=== PATIENT | male | born 1990 | race Caucasian/White ===

== ENCOUNTER 2024-11-05 05:03 | Emergency (ER) | payer SELFPAY ==
[2024-11-05 05:21] VITALS: BP 153/103
[2024-11-05 05:45] VITALS: BP 135/103
[2024-11-05 06:00] VITALS: BP 150/110
[2024-11-05 06:01] VITALS: BMI 24.2
[2024-11-05 06:17] LABS: Hematocrit 45.8 % (39.0-52.0); Hemoglobin 16.1 g/dL (13.0-18.0); Mean Corp Hgb Conc. 35.2 g/dL (33.0-37.0); Mean Corpuscular Volume 94.6 fL (80.0-94.0); Nucleated Red Blood Cells % 0 % (-); Platelet Count 220 10^3/uL (130-400); Red Cell Dist. Width 13.8 % (11.5-14.5)
[2024-11-05] MEDS: ZOFRAN 4 MG IV (06:20)
[2024-11-05] MEDS: NSS 1000 IV (06:30)
[2024-11-05 06:45] LABS: ALT (SGPT) 89 U/L (0-50); AST (SGOT) 83 U/L (17-59); Albumin 5.3 g/dl (3.5-5.0); Alkaline Phosphatase 74 U/L (38-126); Blood Urea Nitrogen 9 mg/dl (9-20); Calcium 9.1 mg/dl (8.4-10.2); Carbon Dioxide 24 mmol/L (22-30); Chloride 96 mmol/L (98-107); Estimated Creatinine Clearance > 125 ml/min; Glucose 125 mg/dl (70-99); Potassium 4.4 mmol/L (3.5-5.1); Sodium 136 mmol/L (135-145); Total Protein 9.2 g/dl (6.3-8.2); eGFR > 60.00
[2024-11-05 07:00] VITALS: BP 154/106
[2024-11-05] MEDS: ATIVAN 2 MG PO (07:33)
[2024-11-05 07:35] LABS: Magnesium 1.9 mg/dl (1.6-2.3)
[2024-11-05 08:00] VITALS: BP 123/93
--- NOTE | 2024-11-05 08:20 | ED.GENMED ---
History of Present Illness
General
Chief Complaint: Withdrawal Symptoms
Source: patient
Exam Limitations: none
Time Seen by Provider: 11/05/24 06:53
Nursing documentation reviewed up to this point in time: agreed with
History of Present Illness
History of Present Illness:
Patient presents to ED requesting alcohol detox, secondary to increased alcohol consumption recently, including approxi-2 hours prior to arrival. Denies suicidal or homicidal ideation. Denies abdominal pain. Patient does report nausea sensation.
Denies fever or chills. Denies use of any other illicit medications. Denies dizziness or weakness. Denies trauma. Denies recent illness.
Review of Systems
Review of Systems
Allergies reviewed?: Yes
All Other Systems: ROS reviewed and negative except as documented in HPI and ROS
Constitutional: Reports no symptoms; Denies fever
ABD/GI: Reports nausea; Denies abdominal pain or vomiting
: Reports no symptoms
Musculoskeletal: Reports no symptoms
Skin: Reports no symptoms
Neurological: Reports no symptoms
Phy Exam
Physical Exam
Physical Exam:
Physical Exam
General: no apparent distress, not acutely ill. afebrile. tachycardic.
Head: nc/at. eomi
Neck: supple. no meningeal signs.
Heart: tachycardic. no murmur
Lungs: no acute respiratory distress. clear bilaterally
Abdomen: normal bowel sounds. not tender. no distention
Neuro: alert and oriented x 3. no focal neurological deficits
Skin: no rash
Psychiatric: well kept. interactive and cooperative
Extremities: no edema. no calf tenderness.
Course
Orders/Labs/Results
Orders:
Orders
11/05/24 06:01
Electrocardiogram (*1) Urgent
Reason for Study: QTc Monitoring
11/05/24 06:02
EKG- Treatment ONCE
11/05/24 06:04
Alcohol Urgent
Complete Blood Count/With Diff Urgent
Comprehensive Metabolic Panel Urgent
Magnesium Urgent
Comment: ADD ON
11/05/24 06:17
Ondansetron Injectable [Zofran] 4 mg .ROUTE .STK-MED ONE
11/05/24 06:20
Ondansetron Injectable [Zofran] 4 mg IV NOW STA
11/05/24 06:24
Add On- LAB Urgent
Tests Added?: alcohol level
11/05/24 06:29
0.9% Sodium Chloride 1000 ml [Nss] 1,000 ml IV BOLUS
11/05/24 07:03
Add On- LAB Urgent
Tests Added?: magnesium
11/05/24 07:24
Lorazepam [Ativan] 2 mg PO NOW STA
Abnormal Lab Results
11/05/24
06:04
MCV 94.6 H fL
(80.0-94.0)
MCH 33.3 H pg
(27.0-31.0)
Absolute Lymphs (auto) 1.1 L 10^3/uL
(1.2-3.4)
Chloride 96 L mmol/L
(98-107)
Glucose 125 H mg/dl
(70-99)
AST 83 H U/L
(17-59)
ALT 89 H U/L
(0-50)
Total Protein 9.2 H g/dl
(6.3-8.2)
Albumin 5.3 H g/dl
(3.5-5.0)
11/05/24 06:04
11/05/24 06:04
Vital Signs
Initial and Last Documented VS:
Initial Vital Signs
Temp Pulse Resp BP Pulse Ox
99.1 F 103 18 153/103 95
11/05/24 05:21 11/05/24 05:21 11/05/24 05:21 11/05/24 05:21 11/05/24 05:21
Last Documented Vital Signs
Temp Pulse Resp BP Pulse Ox
98.3 F 91 16 123/93 98
11/05/24 08:50 11/05/24 08:50 11/05/24 08:50 11/05/24 08:50 11/05/24 08:50
MDM/Problems Addressed
MDM/Problems Addressed:
History and exam consistent with ongoing alcohol dependence. Patient without any symptoms concerning for active withdrawal at this time, especially with alcohol consumption recently. Vital signs stable. Patient is alert, awake, and oriented
during observation. While awaiting for [facility] evaluation for potential placement for inpatient alcohol detox/rehab, patient requested to be discharged home, to the care of his girlfriend. Patient will present himself to [facility],
where there is inpatient alcohol detox unit available.
*Pulse Oximetry
SaO2: 95
Oxygen Mode of Delivery: Room air
Patient hypoxic: no
*Critical Care Note
Total Time (30-74mins, 75-104mins- exclusive of procedures): Not Applicable
ED Attending Note
-
Portions of this chart may have been created with voice recognition software.� Occasional wrong word or��sound alike� substitutions may have occurred due to the inherent limitations of voice recognition software.
Discharge Plan
Departure
Patient Disposition: Home (Routine Discharge)
Date of Disposition: 11/05/24
Time of Disposition: 08:20
Patient with high blood pressure during this ER visit?: Yes
Condition: Fair
Discharge Problem:
Alcohol dependence
Instructions: Alcohol Use Disorder (DC)
Referrals:
UNKNOWN,NO INTERVIEW [Family Provider]
Activity Restrictions/Additional Instructions:
As discussed, please follow-up with alcohol detox/rehab program upon discharge for further evaluation and treatment.
Interventions
Interventions:
*Risk Screen - Suicide Last Done: 11/05/24 05:21
*General Assessment Last Done: 11/05/24 05:21
*Neglect/Abuse Screening Last Done: 11/05/24 05:21
*ED- Fall Risk Assessment Last Done: 11/05/24 05:21
*ED COVID-19 Vaccine History Last Done: 11/05/24 05:21
*ED Influenza Vaccine History Last Done: 11/05/24 05:21
*Nursing Disposition Last Done: 11/05/24 08:50
ED- Neurological Assessment Last Done: 11/05/24 06:12
ED-Psychological Assessment Last Done: 11/05/24 06:12
Discharge Date and Time
Discharge Date/Time: 11/05/24 08:50
Print Language: SLOVAK
[2024-11-05 08:50] VITALS: BP 123/93
--- NOTE | 2024-11-05 09:09 | EDRN ---
Discharge instructions reviewed with patient and his girlfriend. Verbalized understanding. Ambulated with steady gait to the [facility].
== END 2024-11-05 08:50 | disposition home or self-care (01) ==
LOC: EMR 05:03
PROVIDERS: Student in an Organized Health Care Education/Training Program; EMERGENCY PHYSICIAN Emergency Medicine
DX: F10.20 Alcohol dependence, uncomplicated (principal); R11.0 Nausea
CPT/HCPCS: 96374; 96361; 99284; 80053; 82077; 83735; 85025; 93005